=== PATIENT | male | born 1960 | race Caucasian/White ===

== ENCOUNTER 2020-06-15 19:59 | Inpatient (IN) | payer BC, SELFPAY ==
--- NOTE | ~2020-06-15 | XR_ITS ---
EXAMINATION: XR chest 1V portable EXAM DATE: 06/15/2020 21:23 INDICATION: cough, projectile vomiting. TECHNIQUE: Portable AP frontal chest x-ray was obtained. There is no prior study for comparison. FINDINGS: Moderate amount of patchy bilateral ill-defined acute airspace disease. Could be edema or p neumonia. Recommend considering/excluding COVID-19. No pneumothorax or pleural effusion. Mild cardiomegaly. There are no osseous abnormalities identified . IMPRESSION: Moderate amount of bilateral ill-defined acute airspace disease, clinical correlation. C onsider COVID pneumonia. Reviewed, dictated and finalized at location G. OMER EXPERIENCE LEADER IMPRESSION: Moderate amount of bilateral ill-defined acute airspace disease, c linical correlation. Consider COVID pneumonia.
--- NOTE | ~2020-06-15 | CT_ITS ---
EXAMINATION: CT brain wo con INDICATION: Headache COMPARISON: None TECHNIQUE: Standard unenhanced head CT. The dose-length product (DLP) was 605.33 mGy-cm. The mA was a djusted according to patient size. Iterative reconstruction technique was employed. FINDINGS: There is no intracranial hemorrhage, acute infarction, or abnormal mass lesion. The ventric les are normal. There is no abnormal mass effect or midline shift. The felipe-white matter differentiat ion is normal. The basal cisterns are patent. The orbits are normal. The paranasal sinuses, mastoids and calvarium are normal. IMPRESSION: 1. No acute intracranial abnormality. Reviewed, dictated and finalized at location A. APEUTIC ACTIVITIES SERVICES WORKER
[2020-06-15 20:09] VITALS: BP 154/82; PULSE 82; RESP 14; TEMP 36.6; O2SAT 97
--- NOTE | 2020-06-15 20:28 | ECG_ITS ---
Measurements Intervals [place] Rate: 79 P: 39 FL: 154 QRS: 16 QRSD: 104 T: 102 QT: 368 QTc: 422 Interpretive Statements SINUS RHYTHM EARLY PRECORDIAL R/S TRANSITION VOLTAGE CRITERIA FOR LVH MINIMAL Q WAVES- HIGH LATERAL LEADS BORDERLINE T WAVE ABNORMALITY- DIFFUSE LEADS BORDERLINE ECG Electronically Signed On 06-16-2020 8:06:05 CHEF INSTRUCTOR by Ayush Berman D.O.
--- NOTE | 2020-06-15 20:37 | PC.NURSE ---
called Valentine costello, added on 2036
[2020-06-15 20:38] LABS: Add Urine Microscopic? YES; Amorphous Sediment Urine Few; Appearance Urine Clear (Clear); Bacteria Urine Trace /hpf; Bilirubin Urine Negative (Negative); Blood Urine 1+ (Negative); Color Urine Yellow (Yellow); Glucose Urine UA 1+ mg/dL (Negative); Ketones Urine 2+ mg/dL (Negative); Leukocyte Esterase Ur Trace LEU/UL (Negative); Nitrate Urine Negative (Negative); Protein Urine 1+ mg/dL (Negative); Specific Grav Ur 1.014 (1.001-1.035); Squamous Epithelial Cell Urine Rare /hpf (Few); Urobilinogen Urine Negative mg/dL (<2.0); WBC Urine 0-3 /hpf
[2020-06-15 20:53] LABS: Alanine Aminotransferase 71 U/L (4-50); Albumin Level 4.3 g/dL (3.5-5.1); Alkaline Phosphatase 102 U/L (38-126); Anion Gap 13 mmol/L (8-16); Aspartate Amino Transferase 86 U/L (17-59); Bilirubin,Total 0.9 mg/dL (0.2-1.3); Blood Urea Nitrogen 5 mg/dL (9-20); Calcium 8.3 mg/dL (8.4-10.2); Carbon Dioxide 23 mmol/L (22-30); Chloride 75 mmol/L (98-107); Estimated CRCL calculation 131 ml/min; Estimated Glomerular Filt Rate > 60; Glucose 137 mg/dL (75-110); Lipase 103 U/L (23-300); Potassium 3.5 mmol/L (3.4-5.0); Sodium 111 mmol/L (137-145)
[2020-06-15 20:58] LABS: Troponin I < 0.012 ng/mL (0.000-0.034)
[2020-06-15] MEDS: ONDANSETRON INJ 4 MG/2 ML VIAL IV PUSH (20:59)
[2020-06-15] MEDS: SODIUM CHLORIDE 0.9% IV 1,000 ML 999 ML IV CONT (21:00)
[2020-06-15 21:37] VITALS: BP 140/89; PULSE 77; RESP 15; O2SAT 99
[2020-06-15 21:40] LABS: Basophils Percent Auto 0.2 % (0.2-1.2); Eosinophils Percent Auto 0.1 % (0-4.4); Hematocrit 36.8 % (42.0-52.0); Hemoglobin 14.2 g/dL (14.0-18.0); Immature Granulocyte Absolute 0.19 K/mm3 (0.00-0.031); Immature Granulocyte Percent A 2.2 % (0-0.5); Lymphocytes Absolute Auto 0.86 K/mm3 (0.9-3.2); Lymphocytes Percent Auto 9.7 % (18.3-44.2); Mean Corpuscular Hemoglobin 31.4 pg (26-34); Mean Corpuscular Volume 81.4 fl (80-100); Mean Platelet Volume 9.9 fl (7.4-10.4); Monocytes Absolute Auto 0.6 K/mm3 (0.1-0.6); Monocytes Percent Auto 6.2 % (2.6-8.5); Neutrophils Absolute Auto 7.2 K/mm3 (1.3-6.7); Neutrophils Percent Auto 81.6 % (45.5-73.1); Nucleated Red Blood Cells Perc 0.2 % (0.0-0.2); Platelet Count Result 270 k/mm3 (150-375); Red Blood Count 4.52 M/mm3 (4.6-6.20); Red Cell Distribution Width 11.8 % (11.5-14.5); White Blood Count 8.8 K/mm3 (4.5-10.0)
[2020-06-15 21:55] LABS: Mean Corpuscular HGB Conc 38.6 g/dl (32-36)
--- NOTE | 2020-06-15 22:08 | ED.GENADULT ---
HPI - General Adult General Chief complaint: Nausea/Vomiting/Diarrhea Stated complaint: vomiting Time Seen by Provider: 06/15/20 20:21 History of Present Illness HPI narrative: Patient is a 59-year-old gentleman who presents the emergency department with chief complaint of nausea vomiting and diarrhea. Patient reports that he was exposed to COVID-19 over the and has had a little bit of a cough some shortness of breath and has had nausea and vomiting. The patient reports that he also had some nasal drainage and was seen by his primary care physician and started on amoxicillin. Patient states that today he continued to have vomiting and also felt very weak and was a little confused per his . Patient currently is able to answer all questions and provide all history without confusion. Patient reports symptoms are not improved by anything nor they worsened by anything. Related Data Home Medications Medication Instructions Recorded Confirmed aspirin 81 mg tablet,delayed 81 mg PO DAILY 01/08/20 06/15/20 release omeprazole 20 mg capsule,delayed 20 mg PO DAILY 01/08/20 06/15/20 release Allergies Allergy/AdvReac Type Severity Reaction Status Date / Time erythromycin base Allergy Mild Unknown Verified 06/13/20 15:09 methylprednisolone Allergy Mild Unknown Verified 06/13/20 15:09 Review of Systems Review of Systems: Narrative: A 10 system review of systems was completed on the patient and is negative except for what is stated in the HPI. Nursing and ancillary documentation was reviewed. [facility] Family History Family History Father Patient's father is Social History Social History Smoking status: Never smoker Alcohol intake: never Comments Past medical history is significant for reflux Exam Narrative: Exam Narrative: GENERAL: Well-appearing, well-nourished, and in no acute distress. HEAD: Normocephalic, atraumatic. EYES: PERRLA and EOMI. ENT: Nares clear, no rhinorrhea or epistaxis. Mucous membranes moist. NECK: Supple. CHEST: Clear to auscultation. No respiratory distress. HEART: Regular rate and rhythm. No murmur heard. Normal peripheral pulses. ABDOMEN: Soft, nontender, nondistended, normal active bowel sounds. EXTREMITIES: Normal range of motion. No edema. SKIN: Warm, dry, no rash. NEURO: No focal deficits. Alert and oriented x3. PSYCH: Normal mood and affect. Course Vital Signs Vital signs: Vital Signs Temperature 36.6 C 06/15/20 20:09 Pulse Rate 82 06/15/20 20:09 Respiratory Rate 14 06/15/20 20:09 Blood Pressure 154/82 H 06/15/20 20:09 Pulse Oximetry 97 06/15/20 20:09 Temperature 36.6 C 06/15/20 20:09 Pulse Rate 77 06/15/20 21:37 Respiratory Rate 15 06/15/20 21:37 Blood Pressure 140/89 06/15/20 21:37 Pulse Oximetry 99 06/15/20 21:37 Medical Decision Making Vital Signs Vital Signs: Vital Signs Temperature 36.6 C 06/15/20 20:09 Pulse Rate 82 06/15/20 20:09 Respiratory Rate 14 06/15/20 20:09 Blood Pressure 154/82 H 06/15/20 20:09 Pulse Oximetry 97 06/15/20 20:09 Temperature 36.6 C 06/15/20 20:09 Pulse Rate 77 06/15/20 21:37 Respiratory Rate 15 06/15/20 21:37 Blood Pressure 140/89 06/15/20 21:37 Pulse Oximetry 99 06/15/20 21:37 Lab Data Result diagrams: 06/15/20 20:24 06/15/20 20:25 Labs: Lab Results 06/15/20 06/15/20 06/15/20 Range/Units 20:24 20:24 20:25 WBC 8.8 (4.5-10.0) K/mm3 RBC 4.52 L (4.6-6.20) M/mm3 Hgb 14.2 (14.0-18.0) g/dL Hct 36.8 L (42.0-52.0) % MCV 81.4 (80-100) fl MCH 31.4 (26-34) pg MCHC 38.6 H (32-36) g/dl RDW 11.8 (11.5-14.5) % Plt Count 270 (150-375) k/mm3 MPV 9.9 (7.4-10.4) fl Immature Gran % (Auto) 2.2 H (0-0.5) % Neut % (Auto)
[2020-06-15 23:15] VITALS: BP 150/80; PULSE 83; RESP 12; O2SAT 99
--- NOTE | 2020-06-15 23:46 | PM.IMHP ---
H&P: HPI History of Present Illness Date/Time: 06/15/20 23:46 Chief Complaint: Generalized weakness Narrative: This is a pleasant 59 year old male with known history of GERD and anxiety who has been at home self quarantining secondary to possible COVID-19 infection for the past two weeks. He reports that he was exposed to COVID-19 at [facility] and afterwards developed fevers, cough, shortness of breath and nausea. Associated symptoms included congestion and generalized weakness. 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 He has been taking little sips of water for the past few days as he has been very nauseated and has been vomiting frequently. Over the past two weeks the patient has also had diarrhea. He denies any headache, blurry vision, seizure like activity, passing out, or other focal neurological symptoms. His confirms that the patient has not had any acute confusion. Tonight in the ER the patient was found to have a serum sodium of 111 mOsm/dl incidently on routine labs. He has no previous history of hyponatremia and is not on any diuretic medications. Review of Systems Review of Systems: All systems reviewed & are unremarkable except as noted in HPI and below PMFSH Past Medical History Medical History Anxiety GERD (gastroesophageal reflux disease) Family History Family History Father Patient's father is Social History Social History Smoking status: Never smoker Alcohol intake: never Substance use: never Gender identity (if verbalized by the patient): Male Spiritual care concerns: No Meds Home Medications and Allergies Home Medications Medication Instructions Recorded Confirmed Type aspirin 81 mg tablet,delayed 81 mg PO DAILY 01/08/20 06/16/20 History release omeprazole 20 mg capsule,delayed 20 mg PO DAILY 01/08/20 06/16/20 History release amoxicillin 875 mg-potassium 1 tablet PO BID #20 tablet 06/13/20 06/16/20 Rx clavulanate 125 mg tablet lorazepam 1 mg tablet 1 mg PO DAILY PRN #30 tablet 06/13/20 06/16/20 Rx Allergies Allergy/AdvReac Type Severity Reaction Status Date / Time erythromycin base Allergy Mild Unknown Verified 06/13/20 15:09 methylprednisolone Allergy Mild Unknown Verified 06/13/20 15:09 Vital Signs Vital Signs - 24 hr 06/15/20 20:09 06/15/20 21:37 06/15/20 23:15 Temperature 36.6 C Pulse Rate 82 77 83 Respiratory Rate 14 15 12 Blood Pressure 154/82 H 140/89 150/80 H Pulse Oximetry 97 99 99 Exam Const: General: cooperative, alert, awake and ill appearing Nutritional Appearance: well nourished Orientation/consciousness: patient oriented x3 HENMT: Head: normal to inspection General nose exam: Normal external nose present Face and sinus: normal facial exam Mouth: Yes Normal oral and palatal mucosa present and Yes oropharynx normal Eyes: Pupils: Equal, round and reactive pupils present EOM: EOMs intact bilaterally Neck: Neck: supple and no JVD Thyroid: thyroid normal Lymphatic: lymphadenopathy not noted Resp: Effort & Inspection: normal respiratory effort Auscultation: diminished lung sounds Cardio: Rate: regular rate Rhythm: regular rhythm Heart sounds: no murmurs GI: Inspection: normal to inspection Auscultation: normal bowel sounds Skin: General skin exam: normal color and no rashes or lesions noted Neuro: General: patient oriented x3 Cranial nerves: Yes CN's II-XII intact bilaterally and Yes Equal, round and reactive pupils present Speech: normal speech Motor exam (neuro): 5/5 motor strength present throughout Sensory Exam: normal sensation Extrem: General: normal to inspection and no
[2020-06-16] VITALS (17 sets, daily range): BP systolic 135–146; BP diastolic 75–91; PULSE 77–90; RESP 16–20; TEMP 36.2–36.8; O2SAT 92–99; BMI 34.0
[2020-06-16 00:03] LABS: Anion Gap 8 mmol/L (8-16); Blood Urea Nitrogen 5 mg/dL (9-20); Calcium 7.6 mg/dL (8.4-10.2); Carbon Dioxide 24 mmol/L (22-30); Chloride 78 mmol/L (98-107); Estimated CRCL calculation 154 ml/min; Estimated Glomerular Filt Rate > 60; Glucose 121 mg/dL (75-110); Potassium 3.4 mmol/L (3.4-5.0); Sodium 110 mmol/L (137-145)
--- NOTE | 2020-06-16 01:23 | ADMGEN ---
This patient, Reza Albert, was admitted to IMU Room 207-01. Patient/family oriented to hospital policies and general routines including ID bracelet, bed and alarms, visiting hours, pain management, procedures, bathroom and other care routines, personal items, smoking policy, room service/diet, and visiting hours. Information on how to activate the Rapid Response Team has been discussed. Patient/Family are encouraged to report perceived risks to care and to ask questions if they do not understand what they are told or what they should do. bo gonsales approx [id number]
[2020-06-16] MEDS: SODIUM CHLORIDE 0.9% IV 1,000 ML 125 ML IV CONT (01:41)
[2020-06-16] MEDS: ALBUTEROL SULFATE (*SP) AEROSOL 1 PUFF 2 PUFF INHALATION ×4 (01:42→20:09)
[2020-06-16] MEDS: SODIUM CHLORIDE 3% 500 ML 90 ML IV CONT (02:33)
[2020-06-16 04:08] LABS: Creatinine Urine 29.9 mg/dL; Total Protein Urine Random 18 mg/dL
[2020-06-16 04:08] LABS: Sodium Urine Random 13 meq/L
[2020-06-16 05:00] LABS: Albumin Level 3.5 g/dL (3.5-5.1); Anion Gap 10 mmol/L (8-16); Blood Urea Nitrogen 4 mg/dL (9-20); Calcium 7.7 mg/dL (8.4-10.2); Carbon Dioxide 23 mmol/L (22-30); Chloride 79 mmol/L (98-107); Estimated CRCL calculation 155 ml/min; Estimated Glomerular Filt Rate > 60; Glucose 102 mg/dL (75-110); Phosphorus 2.5 mg/dL (2.5-4.5); Potassium 3.1 mmol/L (3.4-5.0); Sodium 112 mmol/L (137-145)
[2020-06-16 06:19] LABS: Thyroid Stimulating Hormone Reflex 0.413 uIU/mL (0.465-4.68)
[2020-06-16 06:21] LABS: Basophils Percent Auto 0.4 % (0.2-1.2); Eosinophils Percent Auto 0.1 % (0-4.4); Hematocrit 33.2 % (42.0-52.0); Hemoglobin 13.3 g/dL (14.0-18.0); Immature Granulocyte Absolute 0.17 K/mm3 (0.00-0.031); Immature Granulocyte Percent A 2.4 % (0-0.5); Lymphocytes Absolute Auto 1.18 K/mm3 (0.9-3.2); Mean Corpuscular Hemoglobin 32.3 pg (26-34); Mean Corpuscular Volume 80.6 fl (80-100); Mean Platelet Volume 9.6 fl (7.4-10.4); Monocytes Absolute Auto 0.6 K/mm3 (0.1-0.6); Monocytes Percent Auto 8.9 % (2.6-8.5); Neutrophils Absolute Auto 4.9 K/mm3 (1.3-6.7); Neutrophils Percent Auto 71.2 % (45.5-73.1); Platelet Count Result 293 k/mm3 (150-375); Red Blood Count 4.12 M/mm3 (4.6-6.20); Red Cell Distribution Width 11.7 % (11.5-14.5)
[2020-06-16 06:26] LABS: Mean Corpuscular HGB Conc 40.1 g/dl (32-36)
[2020-06-16 07:49] LABS: Free T4 Free Thyroxine Reflex 1.81 ng/dL (0.78-2.19)
[2020-06-16 08:09] LABS: Anion Gap 7 mmol/L (8-16); Blood Urea Nitrogen 4 mg/dL (9-20); Calcium 7.7 mg/dL (8.4-10.2); Carbon Dioxide 24 mmol/L (22-30); Chloride 86 mmol/L (98-107); Estimated CRCL calculation 132 ml/min; Estimated Glomerular Filt Rate > 60; Glucose 97 mg/dL (75-110); Potassium 3.3 mmol/L (3.4-5.0); Sodium 117 mmol/L (137-145)
[2020-06-16 09:04] LABS: Total Triiodothyronine (T3) 0.86 NG/ML (0.97-1.69)
[2020-06-16] MEDS: ENOXAPARIN 40 MG/0.4 ML SYRINGE SUB-Q (09:11)
[2020-06-16] MEDS: DEXTROSE 5% IN WATER 500 ML 250 ML IV CONT (09:11)
[2020-06-16] MEDS: PANTOPRAZOLE 40 MG TABLET PO (09:12)
[2020-06-16] MEDS: AMOXICILLIN/CLAVULANATE K 875-125 MG TAB 1 TABLET PO ×2 (09:12→20:09)
[2020-06-16] MEDS: ASPIRIN 81 MG ENTERIC TABLET PO (09:12)
[2020-06-16 12:56] LABS: Sodium 117 mmol/L (137-145)
[2020-06-16 12:58] LABS: Anion Gap 10 mmol/L (8-16); Blood Urea Nitrogen 4 mg/dL (9-20); Calcium 7.8 mg/dL (8.4-10.2); Carbon Dioxide 23 mmol/L (22-30); Chloride 84 mmol/L (98-107); Estimated CRCL calculation 155 ml/min; Estimated Glomerular Filt Rate > 60; Glucose 114 mg/dL (75-110); Potassium 3.3 mmol/L (3.4-5.0); Sodium 117 mmol/L (137-145)
--- NOTE | 2020-06-16 13:27 | PM.IMPN ---
Progress Note: A&P Assessment and Plan (1) Suspected 2019 novel coronavirus infection: Code(s): Z20.828 - Contact with and (suspected) exposure to other viral communicable diseases Status: Acute Assessment and Plan: Ruling out Awaiting PCR. (2) Generalized weakness: Code(s): R53.1 - Weakness Status: Acute Assessment and Plan: Likely secondary to hyponatremia and acute illness. (3) Acute hyponatremia: Code(s): E87.1 - Hypo-osmolality and hyponatremia Status: Acute Assessment and Plan: Management as pre Nephrology Trending up Continue to monitor (4) Dehydration: Code(s): E86.0 - Dehydration Status: Acute Assessment and Plan: Gentle hydration. (5) Nausea & vomiting: Qualifiers: Vomiting Intractability: non-intractable Vomiting type: unspecified Qualified Code(s): R11.2 - Nausea with vomiting, unspecified Code(s): R11.2 - Nausea with vomiting, unspecified Status: Acute Assessment and Plan: Supportive care. Likely secondary to acute illness. Subjective Date/time seen: 06/16/20 13:27 States that feels very tired and weak. Review of Systems Review of Systems: Narrative: Very tired and weak has had n/v/abdominal pain/diarrhea for the last week or so. Constitutional: Constitutional: Reports fatigue, Reports fever(s) and Reports lethargy Eyes: Comments: no vision changes. ENT: Comments: nasal congestion. Cardiovascular: Comments: no chest pain. Respiratory: Comments: no cough, no sputum production, no sob. Gastrointestinal: Comments: n/v/abdominal pain/diarrhea. Musculoskeletal: Musculoskeletal: Reports muscle weakness Integumentary/Breasts: Comments: no rashes. Neurologic: Comments: headache. Exam Narrative: Exam Narrative: Acutely ill looking lying in bed. Const: General: comfortable, no acute distress, well developed, alert, awake, Physically active and ill appearing Nutritional Appearance: average body habitus Orientation/consciousness: patient oriented x3 Limitations: no limitations HENMT: Head: normocephalic Ears: hearing grossly normal bilaterally General nose exam: Normal external nose present Face and sinus: normal facial exam Mouth: Yes Normal oral and palatal mucosa present Eyes: General: appearance normal, both eyes and all related structures Pupils: Equal, round and reactive pupils present EOM: EOMs intact bilaterally Neck: Neck: no lymphadenopathy, supple and no JVD Resp: Effort & Inspection: normal respiratory effort Auscultation: clear to auscultation bilaterally Cardio: Jugular venous distension: no JVD Rate: regular rate Heart sounds: S1 normal heart sound present GI: GI Palp: Yes Soft to palpation and Yes No hepatosplenomegaly present Skin: General skin exam: normal color Lesions: no lesions Rashes: no rashes Trauma: no lacerations or abrasions Wounds: no wounds Hair: normal Neuro: General: patient oriented x3 and CN's II-XI intact bilaterally Cranial nerves: Yes CN's II-XII intact bilaterally and Yes Equal, round and reactive pupils present Cognition (Neuro): normal cognition Speech: normal speech Motor exam (neuro): 5/5 motor strength present throughout Extrem: General: normal to inspection, full ROM and no pedal edema Objective Data Vital Signs Vital Signs: Vital Signs - 24 hr 06/15/20 20:09 06/15/20 21:37 06/15/20 23:15 Temperature 97.9 F Pulse Rate 82 77 83 Respiratory Rate 14 15 12 Blood Pressure 154/82 H 140/89 150/80 H Pulse Oximetry 97 99 99 06/16/20 00:15 06/16/20 01:24 06/16/20 02:00 Temperature 97.2 F L Pulse Rate 87 81 89 Respiratory Rate 20 18 Blood Pressure 135/91 H 146/79 H Pulse Oximetry 99 99 06/16/20 03:48 06/16/20 04:00 06/16/20 06:00 Temperature 97.2 F L Pulse Rate 80 81 88 Respiratory Rate 20 Blood Pressure 145/81 H Pulse Oximetry 95 06/16/20 07:04 06/16/20 08:00 06/16/20 08:58 Tempera
[2020-06-16 16:54] LABS: SARS-CoV-2 RNA PCR Positive
[2020-06-16 17:59] LABS: Anion Gap 10 mmol/L (8-16); Blood Urea Nitrogen 5 mg/dL (9-20); Calcium 8.3 mg/dL (8.4-10.2); Carbon Dioxide 23 mmol/L (22-30); Chloride 86 mmol/L (98-107); Estimated CRCL calculation 132 ml/min; Estimated Glomerular Filt Rate > 60; Glucose 110 mg/dL (75-110); Potassium 3.2 mmol/L (3.4-5.0); Sodium 119 mmol/L (137-145)
--- NOTE | 2020-06-16 18:23 | PM.CNNEP ---
Assessment and Plan Assessment and plan (1) Hyponatremia: Code(s): E87.1 - Hypo-osmolality and hyponatremia Status: Acute Assessment and Plan: improvement noted in sodium level s/p 3% saline however, concern is for overcorrection - will give DDAVP and D5W IVF to ensure this does not occur goal of therapy is a 6 - 9meQ/L change in 24 hours presumed etiology due to nausea/vomiting/diarrhea - urine electrolytes support volume depletion - not on any medications that would cause this - possibly related to COVID-19 exposure (?) TSH low but T4; cortisol okay as well follow-up on SPEP/UPEP, serum/urine osmolality, and kappa/lambda ratio continue fluid restriction for now follow serum sodium levels (2) Suspected 2019 novel coronavirus infection: Code(s): Z20.828 - Contact with and (suspected) exposure to other viral communicable diseases Status: Acute Assessment and Plan: follow-up on testing continue isolation for now (3) Nausea & vomiting: Qualifiers: Vomiting Intractability: non-intractable Vomiting type: unspecified Qualified Code(s): R11.2 - Nausea with vomiting, unspecified Code(s): R11.2 - Nausea with vomiting, unspecified Status: Acute Assessment and Plan: supportive therapy follow symptoms Extensive discussion with ER physician last night and patient today regarding plan of care and necessity of careful monitoring of sodium levels (> 20 minute conversation) Will continue to follow. History of Present Illness Reason for Consult Consult date: 06/16/20 Reason for consult: hyponatremia Chief Complaint Chief complaint: hyponatremia, viral pneumonia, nausea/vomiting History of Present Illness Narrative: The patient is a 59 year old male with past medical history as outlined below who presented to [facility] ER with complaints of ongoing nausea and vomiting. For the past 2 weeks the patient has been home self quarantining due to possible COVID-19 exposure. Apparently, around gi, he was exposed to someone who had COVID-19 and afterwards had symptoms will of fever, cough, shortness of breath, and nausea. Other associated symptoms included increased congestion and generalized weakness. He also reports that his appetite has been somewhat poor although his fevers did subside. His was more concerned by the fact that he had not been eating and drinking very well particularly since he is an avid soda drinker in general. He has been taking sips of water but more recently, he has had increased nausea and vomiting to the point where any significant oral intake in the last week or so has been very limited and this has been complicated by episodes of diarrhea as well. He gave no other symptoms of headache, syncope, or palpitations although his did mention that his memory is somewhat diminished since last weekend. Because of the persistence of the nausea and vomiting as well as the other symptoms as mentioned above he came to the ER for further evaluation. Workup and evaluation in the emergency room demonstrated the patient to be hemodynamically stable and routine blood tests were significant for significant/severe hyponatremia with a sodium level of 111mmol/L. he was tested for COVID-19 but given the severe hyponatremia, he was admitted the hospital for further evaluation and therapy. it should be noted they received about a L of normal saline in the ER without any significant improvement in his sodium level Dr. stanford actually, his sodium level actually somewhat worsened to 110mmol/L. Hence he was given 3% saline overnight with improvement in his sodium level. Renal consultation was requested due to his acute hyponatremia. From my discussion with the patient, he has never been told or had issues with low sodium level in the past. In spite of his significant hypernatremia, he
[2020-06-16] MEDS: DEXTROSE 5% 1,000 ML 1,000 ML 250 ML IV CONT (18:24)
[2020-06-16] MEDS: DESMOPRESSIN ACETATE 4 MCG/ML AMP 1 MCG SUB-Q (18:32)
[2020-06-16 22:01] LABS: Anion Gap 8 mmol/L (8-16); Blood Urea Nitrogen 4 mg/dL (9-20); Calcium 8.2 mg/dL (8.4-10.2); Carbon Dioxide 25 mmol/L (22-30); Chloride 84 mmol/L (98-107); Estimated CRCL calculation 132 ml/min; Estimated Glomerular Filt Rate > 60; Glucose 128 mg/dL (75-110); Potassium 3.2 mmol/L (3.4-5.0); Sodium 117 mmol/L (137-145)
[2020-06-17] VITALS (10 sets, daily range): BP systolic 124–138; BP diastolic 73–85; PULSE 71–86; RESP 12–20; TEMP 36.2–36.9; O2SAT 97–99
[2020-06-17 01:04] LABS: Sodium 117 mmol/L (137-145)
[2020-06-17] MEDS: ALBUTEROL SULFATE (*SP) AEROSOL 1 PUFF 2 PUFF INHALATION ×4 (01:13→20:05)
[2020-06-17 01:54] LABS: Anion Gap 8 mmol/L (8-16); Blood Urea Nitrogen 4 mg/dL (9-20); Calcium 7.7 mg/dL (8.4-10.2); Carbon Dioxide 24 mmol/L (22-30); Chloride 85 mmol/L (98-107); Estimated CRCL calculation 132 ml/min; Estimated Glomerular Filt Rate > 60; Glucose 103 mg/dL (75-110); Potassium 3.1 mmol/L (3.4-5.0)
[2020-06-17] MEDS: PANTOPRAZOLE 40 MG TABLET PO (08:15)
[2020-06-17] MEDS: ASPIRIN 81 MG ENTERIC TABLET PO (08:15)
[2020-06-17] MEDS: POTASSIUM CHLORIDE 20 MEQ TABLET 40 MEQ PO ×2 (08:15→14:11)
[2020-06-17] MEDS: AMOXICILLIN/CLAVULANATE K 875-125 MG TAB 1 TABLET PO ×2 (08:15→20:05)
[2020-06-17] MEDS: ENOXAPARIN 40 MG/0.4 ML SYRINGE SUB-Q (08:16)
--- NOTE | 2020-06-17 11:56 | PM.IMPN ---
Progress Note: A&P Assessment and Plan (1) Suspected 2019 novel coronavirus infection: Code(s): Z20.828 - Contact with and (suspected) exposure to other viral communicable diseases Status: Acute Assessment and Plan: Ruling out Awaiting PCR. (2) Generalized weakness: Code(s): R53.1 - Weakness Status: Acute Assessment and Plan: Likely secondary to hyponatremia and acute illness. (3) Acute hyponatremia: Code(s): E87.1 - Hypo-osmolality and hyponatremia Status: Acute Assessment and Plan: Management as pre Nephrology Trending up Continue to monitor (4) Dehydration: Code(s): E86.0 - Dehydration Status: Acute Assessment and Plan: Gentle hydration. (5) Nausea & vomiting: Qualifiers: Vomiting Intractability: non-intractable Vomiting type: unspecified Qualified Code(s): R11.2 - Nausea with vomiting, unspecified Code(s): R11.2 - Nausea with vomiting, unspecified Status: Acute Assessment and Plan: Supportive care. Likely secondary to acute illness. Additional Plan Will continue current treatment and monitor electrolytes. Subjective Date/time seen: 06/17/20 11:56 Interval history: Patient was seen during the morning rounds today. Mild sob, no chest pain,mood stable. Review of Systems Review of Systems: All systems reviewed & are unremarkable except as noted in HPI and below Constitutional: Constitutional: Reports fatigue, Reports fever(s) and Reports lethargy Musculoskeletal: Musculoskeletal: Reports muscle weakness Endocrine: Endocrine: Reports fatigue Exam Narrative: Exam Narrative: Acutely ill looking lying in bed. Const: General: cooperative, comfortable, no acute distress, well developed, alert, awake, Physically active and ill appearing Nutritional Appearance: average body habitus and well nourished Orientation/consciousness: patient oriented x3 Limitations: no limitations HENMT: Head: normal to inspection and normocephalic Ears: hearing grossly normal bilaterally General nose exam: Normal external nose present Face and sinus: normal facial exam Mouth: Yes Normal oral and palatal mucosa present and Yes oropharynx normal Eyes: General: appearance normal, both eyes and all related structures Pupils: Equal, round and reactive pupils present EOM: EOMs intact bilaterally Neck: Neck: no lymphadenopathy, supple and no JVD Thyroid: thyroid normal Lymphatic: lymphadenopathy not noted Resp: Effort & Inspection: normal respiratory effort Auscultation: clear to auscultation bilaterally and diminished lung sounds Cardio: Jugular venous distension: no JVD Rate: regular rate Rhythm: regular rhythm Heart sounds: S1 normal heart sound present and no murmurs GI: Inspection: normal to inspection Auscultation: normal bowel sounds Skin: General skin exam: normal color and no rashes or lesions noted Lesions: no lesions Rashes: no rashes Trauma: no lacerations or abrasions Wounds: no wounds Hair: normal Neuro: General: patient oriented x3 and CN's II-XI intact bilaterally Cranial nerves: Yes CN's II-XII intact bilaterally and Yes Equal, round and reactive pupils present Cognition (Neuro): normal cognition Speech: normal speech Motor exam (neuro): 5/5 motor strength present throughout Sensory Exam: normal sensation Extrem: General: normal to inspection, full ROM, no pedal edema and no edema Psych: Mental Status: mental status grossly normal Affect: normal affect Objective Data Vital Signs Vital Signs: Vital Signs - 24 hr 06/16/20 12:00 06/16/20 14:00 06/16/20 16:00 Temperature 36.4 C L 36.8 C Pulse Rate 85 81 83 Respiratory Rate 18 16 Blood Pressure 140/85 139/83 Pulse Oximetry 96 99 06/16/20 18:00 06/16/20 19:52 06/16/20 20:00 Temperature 36.5 C Pulse Rate 83 82 77 Respiratory Rate 20 Blood Pressure 143/80 H Pulse Oximetry 99 06/16/20 22:00 06/17/20 00:00
[2020-06-17 12:21] LABS: Alanine Aminotransferase 89 U/L (4-50); Albumin Level 3.6 g/dL (3.5-5.1); Alkaline Phosphatase 94 U/L (38-126); Anion Gap 9 mmol/L (8-16); Aspartate Amino Transferase 63 U/L (17-59); Bilirubin,Total 0.6 mg/dL (0.2-1.3); Blood Urea Nitrogen 4 mg/dL (9-20); Calcium 8.3 mg/dL (8.4-10.2); Carbon Dioxide 25 mmol/L (22-30); Chloride 88 mmol/L (98-107); Estimated CRCL calculation 132 ml/min; Estimated Glomerular Filt Rate > 60; Glucose 103 mg/dL (75-110); Potassium 3.4 mmol/L (3.4-5.0); Sodium 122 mmol/L (137-145)
--- NOTE | 2020-06-17 12:33 | PM.PNNEP ---
Progress Note: A&P Assessment and Plan (1) Hyponatremia: Code(s): E87.1 - Hypo-osmolality and hyponatremia Status: Acute Assessment and Plan: improvement noted in sodium level s/p 3% saline however, concern is for overcorrection yesterday - s/p DDAVP and D5W IVF which stability in sodium level goal of therapy is a 6 - 9meq/L change in 24 hours (which has been maintained) presumed etiology due to nausea/vomiting/diarrhea - urine electrolytes support volume depletion - not on any medications that would cause this - possibly related to COVID-19 exposure/sequelae (?) - CXR on admission noted TSH low but T4; cortisol okay as well follow-up on SPEP/UPEP, serum/urine osmolality, and kappa/lambda ratio continue fluid restriction for now follow serum sodium levels (2) Suspected 2019 novel coronavirus infection: Code(s): Z20.828 - Contact with and (suspected) exposure to other viral communicable diseases Status: Acute Assessment and Plan: testing is POSITIVE continue isolation for now no need for further intervention as on room air (3) Nausea & vomiting: Qualifiers: Vomiting Intractability: non-intractable Vomiting type: unspecified Qualified Code(s): R11.2 - Nausea with vomiting, unspecified Code(s): R11.2 - Nausea with vomiting, unspecified Status: Acute Assessment and Plan: supportive therapy follow symptoms Will continue to follow. Subjective Date/time seen: 06/17/20 12:33 No apparent distress voiced at the time of my visit; some mild shortness of breath noted; no acute events overnight or earlier this AM; no AM labs done. Exam Narrative: Exam Narrative: General: WD/WN male in NAD Heart: normal S1 and S2; no rub Lungs: clear anteriorly Abdomen: soft, nontender, nondistended, positive bowel sounds Extremities: no cyanosis or clubbing; no edema Skin: warm and dry Objective Data Vital Signs Vital Signs: Vital Signs Temp Pulse Resp BP Pulse Ox 06/17/20 12:00 36.2 C L 72 12 124/73 97 06/17/20 10:00 81 06/17/20 08:00 36.4 C L 82 16 138/85 99 06/17/20 06:00 79 06/17/20 04:00 36.2 C L 74 20 132/75 98 06/17/20 02:00 72 06/17/20 00:00 36.4 C L 71 20 134/81 98 06/16/20 22:00 84 06/16/20 20:00 77 06/16/20 19:52 36.5 C 82 20 143/80 H 99 06/16/20 18:00 83 06/16/20 16:00 36.8 C 83 16 139/83 99 06/16/20 14:00 81 Intake/Output Intake/Output: Intake & Output 06/14/20 06/15/20 06/16/20 06/17/20 23:59 23:59 23:59 23:59 Intake Total 1000 180 240 Output Total 2800 1800 Balance 1000 -2620 -1560 Meds/Results Medications: Active Medications Generic Name Dose Route Start Last Admin Trade Name Freq PRN Reason Stop Dose Admin Acetaminophen 650 mg 06/16/20 00:20 Acetaminophen 325 Mg Tablet PO Q4H PRN Mild Pain (1-3) or Fever Albuterol 2 puff 06/15/20 23:45 Albuterol Sulfate (*Sp) Aerosol 1 Puff INHALATION Q6HRT PRN Shortness Of Breath Albuterol 2 puff 06/16/20 02:00 06/17/20 08:16 Albuterol Sulfate (*Sp) Aerosol 1 Puff INHALATION 2 puff Q6HRT JEAN Administration Amoxicillin/Clavulanate Potassium 1 tablet 06/16/20 09:00 06/17/20 08:15 Amoxicillin/Clavulanate K 875-125 Mg Tab PO 06/23/20 09:01 1 tablet Q12HR JEAN Administration Aspirin 81 mg 06/16/20 09:00 06/17/20 08:15 Aspirin 81 Mg Enteric Tablet PO 81 mg DAILY JEAN Administration Enoxaparin Sodium 40 mg 06/16/20 09:00 06/17/20 08:16 Enoxaparin 40 Mg/0.4 Ml Syringe SUB-Q 40 mg DAILY JEAN Administration Guaifenesin/Dextromethorphan 5 ml 06/15/20 23:45 Guaifenesin/Dextromethorphan 10 Ml Udc PO Q4H PRN Cough Lorazepam 1 mg 06/16/20 04:43 Lorazepam (*Crx) 1 Mg Tablet PO DAILY PRN anxiety Magnesium Oxide 400 mg 06/18/20 09:00
--- NOTE | 2020-06-17 14:13 | PC.NURSE ---
This patient, Reza Albert, was transferred to [facility] on 06/17/20 at 1413. Personal belongings sent with patient. Report given to SUE Persaud. Appropriate documentation sent with patient.
--- NOTE | 2020-06-17 15:10 | PC.NURSE ---
This patient, Reza Albert, was received from [ [id number] ] on 06/17/20 at 1511. Patient/family oriented to unit policies and routines
[2020-06-17 17:04] LABS: Anion Gap 8 mmol/L (8-16); Blood Urea Nitrogen 4 mg/dL (9-20); Calcium 8.7 mg/dL (8.4-10.2); Carbon Dioxide 28 mmol/L (22-30); Chloride 89 mmol/L (98-107); Estimated CRCL calculation 115 ml/min; Estimated Glomerular Filt Rate > 60; Glucose 103 mg/dL (75-110); Potassium 3.7 mmol/L (3.4-5.0); Sodium 125 mmol/L (137-145)
[2020-06-17 22:07] LABS: Sodium 124 mmol/L (137-145)
[2020-06-18] VITALS (7 sets, daily range): BP systolic 108–122; BP diastolic 66–81; PULSE 76–96; RESP 16–20; TEMP 36.5–36.9; O2SAT 92–98
[2020-06-18] MEDS: ALBUTEROL SULFATE (*SP) AEROSOL 1 PUFF 2 PUFF INHALATION ×4 (02:03→20:34)
[2020-06-18 07:39] LABS: Anion Gap 6 mmol/L (8-16); Blood Urea Nitrogen 6 mg/dL (9-20); Calcium 8.6 mg/dL (8.4-10.2); Carbon Dioxide 26 mmol/L (22-30); Chloride 95 mmol/L (98-107); Estimated CRCL calculation 112 ml/min; Estimated Glomerular Filt Rate > 60; Glucose 89 mg/dL (75-110); Potassium 3.7 mmol/L (3.4-5.0); Sodium 127 mmol/L (137-145)
[2020-06-18] MEDS: ENOXAPARIN 40 MG/0.4 ML SYRINGE SUB-Q (09:35)
[2020-06-18] MEDS: AMOXICILLIN/CLAVULANATE K 875-125 MG TAB 1 TABLET PO ×2 (09:35→20:33)
[2020-06-18] MEDS: ASPIRIN 81 MG ENTERIC TABLET PO (09:35)
[2020-06-18] MEDS: PANTOPRAZOLE 40 MG TABLET PO (09:35)
[2020-06-18] MEDS: MAGNESIUM OXIDE 400 MG TABLET PO (09:35)
--- NOTE | 2020-06-18 10:50 | PM.IMPN ---
Progress Note: A&P Assessment and Plan (1) Generalized weakness: Code(s): R53.1 - Weakness Status: Acute Assessment and Plan: Likely secondary to viral illness and dehydration. Continue IV hydration and supportive care. PT evaluation and treatment. (2) Suspected 2019 novel coronavirus infection: Code(s): Z20.828 - Contact with and (suspected) exposure to other viral communicable diseases Status: Acute Assessment and Plan: The patient has had viral URI symptoms for the past 2 weeks. He was COVID-19 swabbed in the ER tonight. Continue droplet isolation. Continue supportive care. COVID-19 results pending. (3) Acute hyponatremia: Code(s): E87.1 - Hypo-osmolality and hyponatremia Status: Acute Assessment and Plan: The patient has severe hyponatremia with a serum sodium of 111 mOsm/dl. He was treated with 1 liter NS IV bolus in the ER. Nephrology has been consulted by ER provider. We will recheck BMP. Consider hypertonic saline. Seizure precautions. Check urine sodium and urine osm. Complete oral fluid restriction. (4) Nausea & vomiting: Qualifiers: Vomiting Intractability: non-intractable Vomiting type: unspecified Qualified Code(s): R11.2 - Nausea with vomiting, unspecified Code(s): R11.2 - Nausea with vomiting, unspecified Status: Acute Assessment and Plan: Secondary to viral syndrome. Antiemetics as needed. (5) Dehydration: Code(s): E86.0 - Dehydration Status: Acute Assessment and Plan: Continue IV hydration. Monitor urine output and vital signs. (6) Anxiety: Code(s): F41.9 - Anxiety disorder, unspecified Status: Chronic Assessment and Plan: Continue lorazepam for anxiety. (7) GERD (gastroesophageal reflux disease): Qualifiers: Esophagitis presence: esophagitis presence not specified Qualified Code(s): K21.9 - Gastro-esophageal reflux disease without esophagitis Code(s): K21.9 - Gastro-esophageal reflux disease without esophagitis Status: Chronic Assessment and Plan: Continue PPI therapy. Additional Plan Will continue current treatment and monitor electrolytes. Sodium is 127 today. Will repeat Bmp in am. If patient stays okay will discharge patient in am. Subjective Date/time seen: 06/18/20 10:50 Interval history: Patient was seen during the morning rounds today. Mild sob, no chest pain,mood stable. No new complaints Review of Systems Review of Systems: All systems reviewed & are unremarkable except as noted in HPI and below Constitutional: Constitutional: Reports fatigue, Reports fever(s) and Reports lethargy Musculoskeletal: Musculoskeletal: Reports muscle weakness Endocrine: Endocrine: Reports fatigue Exam Narrative: Exam Narrative: Acutely ill looking lying in bed. Const: General: cooperative, comfortable, no acute distress, well developed, alert, awake, Physically active and ill appearing Nutritional Appearance: average body habitus and well nourished Orientation/consciousness: patient oriented x3 Limitations: no limitations HENMT: Head: normal to inspection and normocephalic Ears: hearing grossly normal bilaterally General nose exam: Normal external nose present Face and sinus: normal facial exam Mouth: Yes Normal oral and palatal mucosa present and Yes oropharynx normal Eyes: General: appearance normal, both eyes and all related structures Pupils: Equal, round and reactive pupils present EOM: EOMs intact bilaterally Neck: Neck: no lymphadenopathy, supple and no JVD Thyroid: thyroid normal Lymphatic: lymphadenopathy not noted Resp: Effort & Inspection: normal respiratory effort Auscultation: clear to auscultation bilaterally and diminished lung sounds Cardio: Jugular venous distension: no JVD Rate: regular rate Rhythm: regular rhythm Heart sounds: S1 normal heart sound present and no murmurs GI: Inspection: normal to ins
[2020-06-18 12:02] LABS: Kappa\\Lambda Light Chains 1.07 (0.26-1.65)
--- NOTE | 2020-06-18 14:32 | PM.PNNEP ---
Progress Note: A&P Assessment and Plan (1) Hyponatremia: Code(s): E87.1 - Hypo-osmolality and hyponatremia Status: Acute Assessment and Plan: Patient has hyponatremia. presumed etiology due to nausea/vomiting/diarrhea - urine electrolytes support volume depletion - not on any medications that would cause this - possibly related to COVID-19 exposure/sequelae (?) - CXR on admission noted TSH low but T4; cortisol okay as well follow-up on SPEP/UPEP, serum/urine osmolality, and kappa/lambda ratio Sodium went from 111-117 the 1st day. Than 117-122 the 2nd day. Than 122-127 the 3rd day. Will cancel the D5W and remove fluid restriction. Check another sodium level later today. (2) Suspected 2019 novel coronavirus infection: Code(s): Z20.828 - Contact with and (suspected) exposure to other viral communicable diseases Status: Acute Assessment and Plan: testing is POSITIVE continue isolation for now no need for further intervention as on room air (3) Nausea & vomiting: Qualifiers: Vomiting Intractability: non-intractable Vomiting type: unspecified Qualified Code(s): R11.2 - Nausea with vomiting, unspecified Code(s): R11.2 - Nausea with vomiting, unspecified Status: Acute Assessment and Plan: supportive therapy No more nausea vomiting. Eating better now. Will continue to follow. Subjective Date/time seen: 06/18/20 14:32 Interval history: Patient is alert. He feels okay. Review of Systems Cardiovascular: Cardiovascular: Reports no additional cardiovascular complaints Respiratory: Respiratory: Reports no additional respiratory complaints Gastrointestinal: Gastrointestinal: Reports no additional gastrointestinal complaints Genitourinary: Genitourinary: Reports no additional male genitourinary complaints Exam Narrative: Exam Narrative: General: WD/WN male in NAD Heart: normal S1 and S2; no rub Lungs: clear anteriorly Abdomen: soft, nontender, nondistended, positive bowel sounds Extremities: no cyanosis or clubbing; no edema Skin: No rash Objective Data Vital Signs Vital Signs: Vital Signs - 24 hr 06/17/20 16:00 06/17/20 20:00 06/18/20 00:00 Temperature 36.9 C 36.5 C 36.5 C Pulse Rate 73 86 78 Respiratory Rate Blood Pressure 127/73 125/81 118/81 Pulse Oximetry 99 97 98 06/18/20 06:00 06/18/20 08:00 06/18/20 12:00 Temperature 36.5 C 36.9 C 36.6 C Pulse Rate 79 76 96 Respiratory Rate 20 16 18 Blood Pressure 108/68 120/72 113/66 Pulse Oximetry 95 92 97 Intake/Output Intake/Output: Intake & Output 06/15/20 06/16/20 06/17/20 06/18/20 23:59 23:59 23:59 23:59 Intake Total 1000 180 980 760 Output Total 2800 2500 500 Balance 1000 -2620 -1520 260 Meds/Results Medications: Active Medications Generic Name Dose Route Start Last Admin Trade Name Freq PRN Reason Stop Dose Admin Acetaminophen 650 mg 06/16/20 00:20 Acetaminophen 325 Mg Tablet PO Q4H PRN Mild Pain (1-3) or Fever Al Hydrox/Mg Hydrox/Simethicone 30 ml 06/17/20 23:17 Mag Hydrox/Al Hydrox/Simeth 30 Ml Udc PO Q4H PRN Indigestion Albuterol 2 puff 06/15/20 23:45 Albuterol Sulfate (*Sp) Aerosol 1 Puff INHALATION Q6HRT PRN Shortness Of Breath Albuterol 2 puff 06/16/20 02:00 06/18/20 09:36 Albuterol Sulfate (*Sp) Aerosol 1 Puff INHALATION 2 puff Q6HRT JEAN Administration Amoxicillin/Clavulanate Potassium 1 tablet 06/16/20 09:00 06/18/20 09:35 Amoxicillin/Clavulanate K 875-125 Mg Tab PO 06/23/20 09:01 1 tablet Q12HR JEAN Administration Aspirin 81 mg 06/16/20 09:00 06/18/20 09:35 Aspirin 81 Mg Enteric Tablet PO 81 mg DAILY JEAN Administration Enoxaparin Sodium 40 mg 06/16/20 09:00 06/18/20 09:35 Enoxaparin 40 Mg/0.4 Ml Syringe SUB-Q 40 mg DAILY JEAN Administration Guaifenesin/Dextromethorphan 5 ml 12
[2020-06-18 15:25] LABS: Sodium 130 mmol/L (137-145)
[2020-06-18 18:38] LABS: Sodium 129 mmol/L (137-145)
[2020-06-18] MEDS: guaiFENesin/DEXTROMETHORPHAN 10 ML UDC 5 ML PO (20:34)
[2020-06-19] VITALS: BP 120/74; PULSE 81; RESP 16; TEMP 36.8; O2SAT 98
[2020-06-19] MEDS: ALBUTEROL SULFATE (*SP) AEROSOL 1 PUFF 2 PUFF INHALATION ×2 (02:35→09:31)
[2020-06-19 04:00] VITALS: BP 121/69; PULSE 89; RESP 16; TEMP 36.6; O2SAT 93
[2020-06-19 04:25] LABS: Osmolality, Urine 149 mOsm/kg (50-1200)
[2020-06-19 08:00] VITALS: BP 107/74; PULSE 76; RESP 20; TEMP 36.5; O2SAT 97
[2020-06-19 08:06] LABS: Anion Gap 5 mmol/L (8-16); Blood Urea Nitrogen 8 mg/dL (9-20); Calcium 8.6 mg/dL (8.4-10.2); Carbon Dioxide 31 mmol/L (22-30); Chloride 94 mmol/L (98-107); Estimated CRCL calculation 112 ml/min; Estimated Glomerular Filt Rate > 60; Glucose 96 mg/dL (75-110); Potassium 3.7 mmol/L (3.4-5.0); Sodium 130 mmol/L (137-145)
[2020-06-19] MEDS: ASPIRIN 81 MG ENTERIC TABLET PO (09:28)
[2020-06-19] MEDS: MAGNESIUM OXIDE 400 MG TABLET PO (09:28)
[2020-06-19] MEDS: AMOXICILLIN/CLAVULANATE K 875-125 MG TAB 1 TABLET PO (09:28)
[2020-06-19] MEDS: ENOXAPARIN 40 MG/0.4 ML SYRINGE SUB-Q (09:28)
[2020-06-19] MEDS: PANTOPRAZOLE 40 MG TABLET PO (09:29)
--- NOTE | 2020-06-19 09:48 | PM.DS ---
DS: Admitting Diagnosis Admitting Diagnosis Admitting Diagnosis: 1. COVID infection 2. Severe hyponatremia 2. Dehydration 4. Anxiety 5. Gastroesophageal reflux disease DS: Discharge Diagnosis Discharge Diagnosis (1) Generalized weakness: Code(s): R53.1 - Weakness Status: Acute Assessment and Plan: Likely secondary to viral illness and dehydration. Continue IV hydration and supportive care. PT evaluation and treatment. (2) Suspected 2019 novel coronavirus infection: Code(s): Z20.828 - Contact with and (suspected) exposure to other viral communicable diseases Status: Acute Assessment and Plan: The patient has had viral URI symptoms for the past 2 weeks. He was COVID-19 swabbed in the ER tonight. Continue droplet isolation. Continue supportive care. COVID-19 results pending. (3) Acute hyponatremia: Code(s): E87.1 - Hypo-osmolality and hyponatremia Status: Acute Assessment and Plan: The patient has severe hyponatremia with a serum sodium of 111 mOsm/dl. He was treated with 1 liter NS IV bolus in the ER. Nephrology has been consulted by ER provider. We will recheck BMP. Consider hypertonic saline. Seizure precautions. Check urine sodium and urine osm. Complete oral fluid restriction. (4) Nausea & vomiting: Qualifiers: Vomiting Intractability: non-intractable Vomiting type: unspecified Qualified Code(s): R11.2 - Nausea with vomiting, unspecified Code(s): R11.2 - Nausea with vomiting, unspecified Status: Acute Assessment and Plan: Secondary to viral syndrome. Antiemetics as needed. (5) Dehydration: Code(s): E86.0 - Dehydration Status: Acute Assessment and Plan: Continue IV hydration. Monitor urine output and vital signs. (6) Anxiety: Code(s): F41.9 - Anxiety disorder, unspecified Status: Chronic Assessment and Plan: Continue lorazepam for anxiety. (7) GERD (gastroesophageal reflux disease): Qualifiers: Esophagitis presence: esophagitis presence not specified Qualified Code(s): K21.9 - Gastro-esophageal reflux disease without esophagitis Code(s): K21.9 - Gastro-esophageal reflux disease without esophagitis Status: Chronic Assessment and Plan: Continue PPI therapy. DS: Summary Hospital Course Reason for hospitalization: 1. COVID infection 2. Severe dehydration 3. Severe hyponatremia 4. Anxiety 6. Gastroesophageal reflux disease Hospital Course: Chief Complaint: Generalized weakness Narrative: This is a pleasant 59 year old male with known history of GERD and anxiety who has been at home self quarantining secondary to possible COVID-19 infection for the past two weeks. He reports that he was exposed to COVID-19 at [facility] and afterwards developed fevers, cough, shortness of breath and nausea. Associated symptoms included congestion and generalized weakness. 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 He has been taking little sips of water for the past few days as he has been very nauseated and has been vomiting frequently. Over the past two weeks the patient has also had diarrhea. He denies any headache, blurry vision, seizure like activity, passing out, or other focal neurological symptoms. His confirms that the patient has not had any acute confusion. Tonight in the ER the patient was found to have a serum sodium of 111 mOsm/dl incidently on routine labs. He has no previous history of hyponatremia and is not on any diuretic medications. Patient's sodium was monitored very closely and oxygen was monitored very closely. Today patient's sodium is 130 patient oxygenation is normal. Patient discharged home regular diet. Activity as tolerated. Follow-up with primary care physician next week Time spent discus
[2020-06-19 12:00] VITALS: BP 119/86; PULSE 104; RESP 20; TEMP 36.4; O2SAT 98
--- NOTE | 2020-06-19 12:27 | PC.NURSE ---
Reviewed discharge instructions and follow up with patient. IV removed with catheter tip intact. Hemostatis aquired. Patient left floor ambulating with staff member to POV. Opportunity for questions asked and answered. Patient verbalized understanding.
[2020-06-19 17:06] LABS: Chloride Rand Ur 20 mmol/L (32-290); Chloride/Creatinine Rand Ur 67 (23-275); Creatinine Random Urine 30 mg/dL (20-320)
[2020-06-19 23:04] LABS: Albumin 3.1 g/dL (3.8-4.8); Alpha 1 Globulin 0.4 g/dL (0.2-0.3); Alpha 2 Globulin 0.8 g/dL (0.5-0.9); Beta 1 Globulin 0.3 g/dL (0.4-0.6); Gamma Globulin 0.7 g/dL (0.8-1.7); Protein, Total 5.6 g/dL (6.1-8.1)
[2020-06-20 05:26] LABS: Creatinine, Random Urine 29 mg/dL (20-320); Total Protein/Creatinine Ratio 207 mg/g creat (22-128)
--- NOTE | 2020-07-16 11:35 | PM.PNPUL ---
Subjective Date/time seen: 06/17/2020 I did not see this patient in consultation; was on vacation. Objective Data Meds/Results Radiology Results: ITS Impressions Chest X-Ray 06/15/20 21:30 IMPRESSION: Moderate amount of bilateral ill-defined acute airspace disease, clinical correlation. Consider COVID pneumonia. Head CT 06/16/20 08:00 IMPRESSION: 1. No acute intracranial abnormality.
== END 2020-06-19 12:23 | disposition home or self-care (01) | DRG 178 ==
LOC: ANHED 22:09 → ANHIMU 06-17 12:03 → ANH3MEDSUR 06-19 09:48 → ANHIMU 06-24 06:14
PROVIDERS: Internal Medicine Nephrology; Admitting Provider Family Medicine; Emergency Provider Emergency Medicine; PCP Internal Medicine; Visit Provider Internal Medicine
DX: U07.1 COVID-19 (principal); E87.1 Hypo-osmolality and hyponatremia; E86.0 Dehydration; K21.9 Gastro-esophageal reflux disease without esophagitis; F41.9 Anxiety disorder, unspecified
CPT/HCPCS: 36415; 70450; 71045; 80048; 80053; 80069; 81001; 82436; 82533; 82570; 83690; 83735; 83883; 83930; 83935; 84155; 84156; 84165; 84166; 84295; 84300; 84439; 84443; 84480; 84484; 85025; 85999; 87635; 93005; 94640; 96361; 96374; 97116; 97161; 97165; 99285; A9270; C9803; J1650; J2405; J2597; J7030; J7060; J7070; J7131; U0003

== ENCOUNTER 2020-06-23 11:11 | Outpatient (CLI) | payer BC, SELFPAY ==
[2020-06-23 12:12] LABS: Sodium 137 mmol/L (137-145)
== END 2020-06-23 11:12 | disposition home or self-care (01) ==
LOC: ANHLAB 11:13
PROVIDERS: PCP Internal Medicine; Visit Provider Internal Medicine Nephrology
DX: E87.1 Hypo-osmolality and hyponatremia (principal)
CPT/HCPCS: 36415; 84295

== ENCOUNTER 2020-08-13 09:31 | Emergency (ER) | payer BC, SELFPAY ==
[2020-08-13] VITALS (16 sets, daily range): BP systolic 114–137; BP diastolic 86–95; PULSE 81–107; RESP 13–32; TEMP 36.7; O2SAT 99–100
--- NOTE | ~2020-08-13 | XR_ITS ---
EXAMINATION: XR chest 2V DATE: 08/13/2020 10:09 INDICATION: Chest pain TECHNIQUE: PA and lateral views of the chest are obtained. COMPARISON: 06/15/2020 FINDINGS: A mild diffuse interstitial pattern is present. There are multiple focal airspace opacities in the lung bases. No pleural effusion or pneumothorax is identified. Cardiomegaly is noted. There i s mild thoracic spondylosis. IMPRESSION: 1. Cardiomegaly with mild pulmonary edema. 2. Minimal bibasilar airspace opacity, consistent with atelectasis versus pneumonia. Reviewed, dictated and finalized at location A. DRIVER IMPRESSION: 1. Cardiomegaly with mild pulmonary edema. 2. Minimal bibasilar airspace opacity, consistent with atelectasis versus pneum onia.
--- NOTE | 2020-08-13 09:37 | ECG_ITS ---
Measurements Intervals [place] Rate: 89 P: 27 NE: 141 QRS: 8 QRSD: 95 T: 37 QT: 361 QTc: 441 Interpretive Statements SINUS RHYTHM EARLY PRECORDIAL R/S TRANSITION LOW QRS VOLTAGE IN PRECORDIAL LEADS NONSPECIFIC ST & T-WAVE ABNORMALITY- ANTEROLAT/HIGH LAT LEADS BORDERLINE ECG Electronically Signed On 08-13-2020 13:07:50 [employer] by Ayush Berman D.O.
[2020-08-13] MEDS: ASPIRIN 81 MG CHEWABLE TABLET 324 MG PO (09:48)
[2020-08-13 10:00] LABS: Basophils Absolute Auto 0.1 K/mm3 (0.0-0.1); Basophils Percent Auto 0.7 % (0.2-1.2); Eosinophils Absolute Auto 0.2 K/mm3 (0-0.3); Eosinophils Percent Auto 2.3 % (0-4.4); Hematocrit 40.5 % (42.0-52.0); Immature Granulocyte Absolute 0.03 K/mm3 (0.00-0.031); Immature Granulocyte Percent A 0.4 % (0-0.5); Lymphocytes Absolute Auto 2.29 K/mm3 (0.9-3.2); Lymphocytes Percent Auto 27.2 % (18.3-44.2); Mean Corpuscular HGB Conc 34.6 g/dl (32-36); Mean Corpuscular Volume 92.7 fl (80-100); Monocytes Absolute Auto 0.5 K/mm3 (0.1-0.6); Monocytes Percent Auto 6.3 % (2.6-8.5); Neutrophils Absolute Auto 5.3 K/mm3 (1.3-6.7); Neutrophils Percent Auto 63.1 % (45.5-73.1); Platelet Count Result 256 k/mm3 (150-375); Red Blood Count 4.37 M/mm3 (4.6-6.20); Red Cell Distribution Width 13.5 % (11.5-14.5); White Blood Count 8.4 K/mm3 (4.5-10.0)
[2020-08-13 10:09] LABS: INR 0.9; Prothrombin Time 12.7 Seconds (11.1-14.7)
[2020-08-13 10:10] LABS: Partial Thromboplastin Time 29.2 SECONDS (22.3-36.8)
[2020-08-13 10:27] LABS: Anion Gap 5 mmol/L (8-16); Blood Urea Nitrogen 14 mg/dL (9-20); Calcium 8.8 mg/dL (8.4-10.2); Carbon Dioxide 30 mmol/L (22-30); Chloride 104 mmol/L (98-107); Estimated CRCL calculation 89 ml/min; Estimated Glomerular Filt Rate > 60; Glucose 95 mg/dL (75-110); Sodium 139 mmol/L (137-145)
[2020-08-13 10:37] LABS: Troponin I < 0.012 ng/mL (0.000-0.034)
--- NOTE | 2020-08-13 11:18 | ED.GENADULT ---
HPI - General Adult General Chief complaint: Chest Pain Stated complaint: chest pain Time Seen by Provider: 08/13/20 09:37 History of Present Illness HPI narrative: Patient is a 60-year-old male who presents ER with chest pain. Reports he has intermittent chest pain related to his acid reflux. Reports today he had sharp 9/10 pain in the center of his chest that was nonradiating. Goes from his epigastrium up into the center of his chest. He took some Rolaids which did not seem to help but his pain is much better at this time. No sweats/nausea/vomiting. No dyspnea. No previous history of cardiac disease. Related Data Home Medications Medication Instructions Recorded Confirmed aspirin 81 mg tablet,delayed 81 mg PO DAILY 01/08/20 06/16/20 release Allergies Allergy/AdvReac Type Severity Reaction Status Date / Time erythromycin base Allergy Mild Unknown Verified 08/13/20 09:45 methylprednisolone Allergy Mild Unknown Verified 08/13/20 09:45 Review of Systems Review of Systems: All systems reviewed & are unremarkable except as noted in HPI and below Constitutional: Constitutional: Denies chills, Denies fever(s) and Denies weakness ENT: Denies nasal congestion and Denies sore throat Cardiovascular: Cardiovascular: Reports chest pain, Denies rapid heart rate and Denies radiating jaw, neck or arm pain Respiratory: Respiratory: Denies cough, Denies dyspnea and Denies wheezing Gastrointestinal: Gastrointestinal: Denies abdominal pain, Reports bloating, Reports heartburn, Denies diarrhea, Denies nausea and Denies vomiting Musculoskeletal: Musculoskeletal: Denies back pain, Denies joint swelling and Denies muscle cramps PMFSH Past Medical History Medical History (Updated 08/13/20 @ 14:07 by Brad Ball MD) Anxiety DVT (deep venous thrombosis) GERD (gastroesophageal reflux disease) Family History Family History Father Patient's father is Social History Social History Smoking status: Never smoker Alcohol intake: never Substance use: never Gender identity (if verbalized by the patient): Male Spiritual care concerns: No Exam Narrative: Exam Narrative: GENERAL: Well-appearing, well-nourished, and in no acute distress. HEAD: Normocephalic, atraumatic. ENT: Mucous membranes moist. CHEST: Clear to auscultation. No respiratory distress. HEART: Regular rate and rhythm. Normal peripheral pulses. ABDOMEN: Soft, nontender, nondistended. EXTREMITIES: Normal range of motion. No edema. SKIN: Warm, dry, no rash. NEURO: Alert and oriented x3. PSYCH: Normal mood and affect. Course Course Emergency Course: Troponins negative x2. Discussed case with Dr. Martin. We will have him follow-up outpatient for stress and echo. Discussed with patient who is verbalized understanding of treatment plan and lab results. Vital Signs Vital signs: Vital Signs Temperature 98.0 F 08/13/20 09:41 Pulse Rate 89 08/13/20 09:41 Respiratory Rate 14 08/13/20 09:41 Blood Pressure 137/87 08/13/20 09:41 Pulse Oximetry 99 08/13/20 09:41 Temperature 98.0 F 08/13/20 09:41 Pulse Rate 93 08/13/20 12:59 Respiratory Rate 25 H 08/13/20 12:59 Blood Pressure 121/87 08/13/20 12:59 Pulse Oximetry 100 08/13/20 12:59 Medical Decision Making Vital Signs Vital Signs: Vital Signs Temperature 98.0 F 08/13/20 09:41 Pulse Rate 89 08/13/20 09:41 Respiratory Rate 14 08/13/20 09:41 Blood Pressure 137/87 08/13/20 09:41 Pulse Oximetry 99 08/13/20 09:41 Temperature 98.0 F 08/13/20 09:41 Pulse Rate 93 08/13/20 12:59 Respiratory Rate 25 H 08/13/20 12:59 Blood Pressure 121/87 08/13/20 12:59 Pulse Oximetry 100 08/13/20 12:59 Lab Data Result diagrams: 08/13/20 09:53 08/13/20 09:53 Labs: Lab Results 08/13/20
[2020-08-13 11:42] LABS: NT Pro B Type Natriuretic Pept 25 PG/ML (5-100)
[2020-08-13] MEDS: BELLADONNA ALK/PHENOB ELIX 10 ML, MAG HYDROX/ALUMINUM HYD/SIMETH 30 ML, LIDOCAINE HCL 2... PO (12:56)
[2020-08-13 13:21] LABS: Troponin I < 0.012 ng/mL (0.000-0.034)
== END 2020-08-13 14:26 | disposition home or self-care (01) ==
PROVIDERS: Emergency Provider Emergency Medicine; PCP Internal Medicine
DX: R07.9 Chest pain, unspecified (principal); K21.9 Gastro-esophageal reflux disease without esophagitis; Z79.84 Long term (current) use of oral hypoglycemic drugs; Z86.718 Personal history of other venous thrombosis and embolism; R94.31 Abnormal electrocardiogram [ECG] [EKG]; I51.7 Cardiomegaly; R91.8 Other nonspecific abnormal finding of lung field; J81.1 Chronic pulmonary edema
CPT/HCPCS: 36415; 71046; 80048; 83880; 84484; 85025; 85610; 85730; 93005; 99284; A9270

== ENCOUNTER 2020-08-25 09:32 | Outpatient (CLI) | payer BC, SELFPAY ==
--- NOTE | 2020-08-25 09:43 | EST_ITS ---
Patient Info Name: Reza Albert Age: 60 years : 1960 Gender: Male Ht: 68 in Wt: 220 lbs BSA: 2.22 m2 HR: 60 bpm BP: 109 / 65 mmHg Exam Date: 08/25/2020 10:08 AM Exam Location: [facility] Pulmonary Patient Status: Outpatient Admit Date: 08/25/2020 Staff Ordering Physician: William Martin DO Piledriver Carpenter: Shila Benson RDCS Attending Provider: AYUSH RENTERIA DO Exercise Technologist: Sintia Martin RDCS Exercise Physician: Ayush Renteria DO Exam Type: CA stress echo Study Info Treadmill exercise stress echocardiogram is performed. Summary 1. 1. Negative Marcin exercise stress test for ischemic ST changes by ECG criteria. 2. 2. Reduced functional capacity, achieving 7.7 METs of workload. 3. 3. Appropriate HR response to exercise. 4. 4. Appropriate HR recovery at 1 minute post exercise. 5. 5. Negative stress echocardiogram for ischemia by wall motion analysis. 6. 6. Patient informed of the above results. Stress Echo Findings Left Ventricle Appropriate increase in LV endocardial thickening with systole. Appropriate augmentation of contractility with systole. No wall motion abnormality. Left Ventricle Normal LV systolic function, no wall motion abnormality. Protocol: Marcin Stress ECG Details Stage: REST Duration (min): 5 min : 10 sec Speed (mph): 0.0 Grade (%): 0 HR (bpm): 60 SBP (mmHg): 109 DBP (mmHg): 65 METS: --- Stage: REST Duration (min): 14 min : 49 sec Speed (mph): 0.0 Grade (%): 0 HR (bpm): 62 SBP (mmHg): 109 DBP (mmHg): 65 METS: --- Stage: STAGE 1 Duration (min): 1 min : 0 sec Speed (mph): 1.7 Grade (%): 10 HR (bpm): 110 SBP (mmHg): 109 DBP (mmHg): 65 METS: --- Stage: STAGE 1 Duration (min): 2 min : 0 sec Speed (mph): 1.7 Grade (%): 10 HR (bpm): 121 SBP (mmHg): 109 DBP (mmHg): 65 METS: --- Stage: STAGE 1 Duration (min): 3 min : 0 sec Speed (mph): 1.7 Grade (%): 10 HR (bpm): 119 SBP (mmHg): 189 DBP (mmHg): 72 METS: --- Stage: STAGE 2 Duration (min): 1 min : 0 sec Speed (mph): 2.5 Grade (%): 12 HR (bpm): 129 SBP (mmHg): 189 DBP (mmHg): 72 METS: --- Stage: STAGE 2 Duration (min): 2 min : 0 sec Speed (mph): 2.5 Grade (%): 12 HR (bpm): 130 SBP (mmHg): 149 DBP (mmHg): 71 METS: --- Stage: STAGE 2 Duration (min): 3 min : 0 sec Speed (mph): 2.5 Grade (%): 12 HR (bpm): 130 SBP (mmHg): 149 DBP (mmHg): 71 METS: --- Stage: STAGE 3 Duration (min): 0 min : 30 sec Speed (mph): 0.0 Grade (%): 0 HR (bpm): 147 SBP (mmHg): 149 DBP (mmHg): 71 METS: --- Stage: RECOVERY Duration (min): 0 min : 29 sec Speed (mph): 0.0 Grade (%): 0 HR (bpm): 128 SBP (mmHg): 149 DBP (mmHg): 71 METS: --- Stage: RECOVERY Duration (min): 1 min : 29 sec Speed (mph): 0.0 Grade (%): 0 HR (bpm): 87 SBP (mmHg): 128 DBP
== END 2020-08-25 09:33 | disposition home or self-care (01) ==
PROVIDERS: PCP Internal Medicine; Visit Provider Internal Medicine
DX: R07.89 Other chest pain (principal)
CPT/HCPCS: 93351

== ENCOUNTER 2021-08-05 12:07 | Outpatient (CLI) | payer BC, SELFPAY ==
[2021-08-05 13:11] LABS: Basophils Absolute Auto 0.1 K/mm3 (0.0-0.1); Basophils Percent Auto 0.7 % (0.2-1.2); Eosinophils Absolute Auto 0.1 K/mm3 (0-0.3); Eosinophils Percent Auto 1.7 % (0-4.4); Hematocrit 40.8 % (42.0-52.0); Hemoglobin 14.4 g/dL (14.0-18.0); Immature Granulocyte Absolute 0.02 K/mm3 (0.00-0.031); Immature Granulocyte Percent A 0.2 % (0-0.5); Lymphocytes Absolute Auto 3.08 K/mm3 (0.9-3.2); Lymphocytes Percent Auto 36.9 % (18.3-44.2); Mean Corpuscular HGB Conc 35.3 g/dl (32-36); Mean Corpuscular Hemoglobin 31.6 pg (26-34); Mean Corpuscular Volume 89.5 fl (80-100); Mean Platelet Volume 9.2 fl (7.4-10.4); Monocytes Absolute Auto 0.4 K/mm3 (0.1-0.6); Monocytes Percent Auto 5.3 % (2.6-8.5); Neutrophils Absolute Auto 4.6 K/mm3 (1.3-6.7); Neutrophils Percent Auto 55.2 % (45.5-73.1); Platelet Count Result 265 k/mm3 (150-375); Red Blood Count 4.56 M/mm3 (4.6-6.20); Red Cell Distribution Width 12.5 % (11.5-14.5); White Blood Count 8.4 K/mm3 (4.5-10.0)
[2021-08-05 13:26] LABS: Alanine Aminotransferase 28 U/L (4-50); Albumin Level 4.4 g/dL (3.5-5.1); Alkaline Phosphatase 91 U/L (38-126); Anion Gap 7 mmol/L (8-16); Aspartate Amino Transferase 30 U/L (17-59); Bilirubin,Total 0.5 mg/dL (0.2-1.3); Blood Urea Nitrogen 12 mg/dL (9-20); Calcium 9.1 mg/dL (8.4-10.2); Carbon Dioxide 24 mmol/L (22-30); Chloride 103 mmol/L (98-107); Cholesterol 238 mg/dL (0-200); Estimated Glomerular Filt Rate > 60; Glucose 97 mg/dL (65-110); HDL Direct 41 mg/dL; Potassium 3.9 mmol/L (3.4-5.0); Sodium 134 mmol/L (137-145); Triglycerides 124 mg/dL (<150)
[2021-08-05 13:37] LABS: LDL Cholesterol Direct 151 mg/dL
[2021-08-05 13:55] LABS: Prostate Specific Antigen 4.3 ng/mL (< OR = 4.0)
== END 2021-08-05 12:08 | disposition home or self-care (01) ==
LOC: ANHLAB 12:11
PROVIDERS: PCP Internal Medicine; Visit Provider Internal Medicine
DX: Z00.00 Encounter for general adult medical examination without abnormal findings (principal)
CPT/HCPCS: 36415; 80053; 80061; 84153; 84443; 85025

== ENCOUNTER 2021-09-10 10:12 | Outpatient (CLI) | payer BC, SELFPAY ==
[2021-09-10 11:13] LABS: Prostate Specific Antigen 3.1 ng/mL (< OR = 4.0)
== END 2021-09-10 10:13 | disposition home or self-care (01) ==
PROVIDERS: PCP Internal Medicine; Visit Provider Physician Assistant
DX: R97.20 Elevated prostate specific antigen [PSA] (principal)
CPT/HCPCS: 36415; 84153

== ENCOUNTER 2022-09-17 10:26 | Outpatient (CLI) | payer BC, SELFPAY ==
[2022-09-17 11:31] LABS: Basophils Absolute Auto 0.1 K/mm3 (0.0-0.1); Basophils Percent Auto 0.6 % (0.2-1.2); Eosinophils Absolute Auto 0.3 K/mm3 (0-0.3); Eosinophils Percent Auto 3.2 % (0-4.4); Hematocrit 39.2 % (42.0-52.0); Immature Granulocyte Absolute 0.02 K/mm3 (0.00-0.031); Immature Granulocyte Percent A 0.3 % (0-0.5); Lymphocytes Absolute Auto 2.39 K/mm3 (0.9-3.2); Lymphocytes Percent Auto 30.7 % (18.3-44.2); Mean Corpuscular HGB Conc 35.7 g/dl (32-36); Mean Corpuscular Hemoglobin 31.8 pg (26-34); Mean Corpuscular Volume 89.1 fl (80-100); Mean Platelet Volume 9.7 fl (7.4-10.4); Monocytes Absolute Auto 0.6 K/mm3 (0.1-0.6); Monocytes Percent Auto 7.3 % (2.6-8.5); Neutrophils Absolute Auto 4.5 K/mm3 (1.3-6.7); Neutrophils Percent Auto 57.9 % (45.5-73.1); Platelet Count Result 225 k/mm3 (150-375); Red Cell Distribution Width 12.9 % (11.5-14.5); White Blood Count 7.8 K/mm3 (4.5-10.0)
[2022-09-17 11:48] LABS: Chloride 103 mmol/L (98-107)
[2022-09-17 12:00] LABS: Anion Gap 8 mmol/L (8-16); Blood Urea Nitrogen 12 mg/dL (9-20); Carbon Dioxide 25 mmol/L (22-30); LDL Cholesterol Direct 135 mg/dL; Potassium 3.9 mmol/L (3.4-5.0); Sodium 136 mmol/L (137-145)
[2022-09-17 12:01] LABS: Alanine Aminotransferase 31 U/L (6-50); Albumin Level 4.3 g/dL (3.5-5.1); Alkaline Phosphatase 80 U/L (38-126); Aspartate Amino Transferase 32 U/L (17-59); Bilirubin,Total 0.5 mg/dL (0.2-1.3); Calcium 8.6 mg/dL (8.4-10.2); Cholesterol 212 mg/dL (0-200); Estimated Glomerular Filt Rate > 60; Glucose 100 mg/dL (65-110); HDL Direct 40 mg/dL; Triglycerides 102 mg/dL (<150)
[2022-09-17 12:17] LABS: Prostate Specific Antigen 3.6 ng/mL (< OR = 4.0); Thyroid Stimulating Hormone 0.994 uIU/mL (0.465-4.680)
== END 2022-09-17 10:27 | disposition home or self-care (01) ==
LOC: ANHLAB 10:27
PROVIDERS: PCP Internal Medicine; Visit Provider Internal Medicine
DX: Z00.00 Encounter for general adult medical examination without abnormal findings (principal)
CPT/HCPCS: 36415; 80053; 80061; 84153; 84443; 85025; G0103

== ENCOUNTER 2024-03-20 09:08 | Outpatient (CLI) | payer OTHER, SELFPAY ==
[2024-03-20 09:37] LABS: Basophils Absolute Auto 0.1 K/mm3 (0.0-0.1); Basophils Percent Auto 0.8 % (0.2-1.2); Eosinophils Absolute Auto 0.2 K/mm3 (0-0.3); Eosinophils Percent Auto 3.4 % (0-4.4); Hematocrit 40.7 % (42.0-52.0); Hemoglobin 14.1 g/dL (14.0-18.0); Immature Granulocyte Absolute 0.02 K/mm3 (0.00-0.031); Immature Granulocyte Percent A 0.3 % (0-0.5); Lymphocytes Absolute Auto 2.29 K/mm3 (0.9-3.2); Mean Corpuscular HGB Conc 34.6 g/dl (32-36); Mean Corpuscular Hemoglobin 31.7 pg (26-34); Mean Corpuscular Volume 91.5 fl (80-100); Mean Platelet Volume 9.3 fl (7.4-10.4); Monocytes Absolute Auto 0.5 K/mm3 (0.1-0.6); Monocytes Percent Auto 6.3 % (2.6-8.5); Neutrophils Absolute Auto 4.1 K/mm3 (1.3-6.7); Neutrophils Percent Auto 57.2 % (45.5-73.1); Platelet Count Result 247 k/mm3 (150-375); Red Blood Count 4.45 M/mm3 (4.6-6.20); Red Cell Distribution Width 12.7 % (11.5-14.5); White Blood Count 7.2 K/mm3 (4.5-10.0)
[2024-03-20 10:03] LABS: Alanine Aminotransferase 23 U/L (6-50); Albumin Level 4.4 g/dL (3.5-5.1); Alkaline Phosphatase 78 U/L (38-126); Anion Gap 3 mmol/L (4-12); Aspartate Amino Transferase 29 U/L (17-59); Bilirubin,Total 0.6 mg/dL (0.2-1.3); Blood Urea Nitrogen 14 mg/dL (9-20); Carbon Dioxide 27 mmol/L (22-30); Chloride 97 mmol/L (98-107); Cholesterol 216 mg/dL (0-200); Estimated Glomerular Filt Rate > 60; Glucose 101 mg/dL (65-110); HDL Direct 49 mg/dL; LDL Cholesterol Direct 135 mg/dL; Potassium 4.2 mmol/L (3.4-5.0); Sodium 127 mmol/L (137-145); Triglycerides 70 mg/dL (<150)
[2024-03-20 10:28] LABS: Prostate Specific Antigen 4.3 ng/mL (< OR = 4.0)
== END 2024-03-20 09:09 | disposition home or self-care (01) ==
LOC: ANHLAB 09:12
PROVIDERS: PCP Internal Medicine; Visit Provider Internal Medicine
DX: Z00.00 Encounter for general adult medical examination without abnormal findings (principal); Z13.29 Encounter for screening for other suspected endocrine disorder; Z12.5 Encounter for screening for malignant neoplasm of prostate
CPT/HCPCS: 36415; 80053; 80061; 84153; 84443; 85025; G0103

== ENCOUNTER 2024-06-01 10:57 | Outpatient (CLI) | payer OTHER, SELFPAY ==
[2024-06-01 12:17] LABS: Sodium Urine Random 50 meq/L
[2024-06-01 12:31] LABS: Anion Gap 5 mmol/L (4-12); Blood Urea Nitrogen 14 mg/dL (9-20); Calcium 8.8 mg/dL (8.4-10.2); Carbon Dioxide 28 mmol/L (22-30); Chloride 101 mmol/L (98-107); Estimated Glomerular Filt Rate > 60; Glucose 91 mg/dL (65-110); Potassium 3.9 mmol/L (3.4-5.0); Sodium 134 mmol/L (137-145)
[2024-06-01 12:58] LABS: Prostate Specific Antigen 3.8 ng/mL (< OR = 4.0)
[2024-06-06 16:23] LABS: Chloride Rand Ur 57 mmol/L (32-290); Chloride/Creatinine Rand Ur 108 (23-275); Creatinine Random Urine 53 mg/dL (20-320)
== END 2024-06-01 10:58 | disposition home or self-care (01) ==
PROVIDERS: PCP Internal Medicine; Visit Provider Internal Medicine
DX: E87.1 Hypo-osmolality and hyponatremia (principal); R97.20 Elevated prostate specific antigen [PSA]; E87.8 Other disorders of electrolyte and fluid balance, not elsewhere classified
CPT/HCPCS: 36415; 80048; 82436; 82570; 84153; 84300

== ENCOUNTER 2024-06-06 03:30 | Emergency (ER) | payer OTHER, SELFPAY ==
[2024-06-06] VITALS (10 sets, daily range): BP systolic 104–143; BP diastolic 61–88; PULSE 61–85; RESP 12–19; TEMP 36.6; O2SAT 97–100
--- NOTE | ~2024-06-06 | XR_ITS ---
Clinical Indication: Syncope, weakness PA and lateral views of the chest: Comparison: 08/13/2020 Findings: The lungs are clear, without evidence of focal consolidation or pleural effusion. Cardiome diastinal silhouette is within normal limits. Bones and soft tissues are unremarkable. Impression: Normal chest. Reviewed, dictated and finalized at [facility]. [employer] SPECIALIST Impression: Normal chest.
--- NOTE | 2024-06-06 03:35 | ECG_ITS ---
Test Date: 2024-06-06 03:42:34 Measurements Intervals [place] Rate: 61 P: 39 MI: 141 QRS: 19 QRSD: 98 T: 56 QT: 403 QTc: 409 Interpretive Statements SINUS RHYTHM NONSPECIFIC T-WAVE ABNORMALITY No previous ECG available for comparison Electronically Signed On 06-06-2024 18:49:31 TOWEL SE[employer] by Marylin Gonzalez
--- NOTE | 2024-06-06 04:35 | ED_ITS ---
HPI - Syncope General Chief Complaint: Syncope Stated Complaint: Syncope getting up to restroom Time Seen by Provider: 06/06/24 04:20 Source: patient, family, EMS and RN notes reviewed Mode of arrival: EMS Limitations: no limitations History of Present Illness HPI narrative: Patient presents after having an episode of syncope. He woke up bloated and gassy and tried moving side to side in bed. Had acid reflux and abdominal pain. This was at about midnight and he got up and had nausea and several episodes of diarrhea. Took Tums and GasEx. While walking across the room about 15 feet, he lost muscle tone and consciousness. It was initially stated that patient hit his head on the wall but patient denies this, states he doesn't think that happened. No chest pain or shortness of breath. He has a history of problems with his sodium and so he tries to drink plenty of electrolyte containing fluids. He was on a hunting trip earlier today and walked a lot. When EMS arrived he was noted to be diaphoretic and hypotensive. He states he felt weak. No pain now. On priolsec for acid reflux at baseline. EMS gave Zofran and fluids en route and this made him feel better although he still feels dry. PCP Dr Reveles. Related Data Home Medications ?Medication ?Instructions ?Recorded ?Confirmed ?Last Taken ?Type aspirin 81 mg tablet,delayed 81 mg PO DAILY 01/08/20 03/28/24 Unknown History release (Adult Low Dose Aspirin) Allergies Allergy/AdvReac Type Severity Reaction Status Date / Time erythromycin base Allergy Mild Unknown Verified 06/06/24 03:34 methylprednisolone Allergy Mild Unknown Verified 06/06/24 03:34 [facility] Past Medical History Medical History Anxiety DVT (deep venous thrombosis) GERD (gastroesophageal reflux disease) Family History Family History Father Patient's father is Social History Social History (Updated 09/22/22 @ 15:10 by Dulce Ruiz MA) Smoking status: Never smoker Alcohol intake: never Substance use: never Lack of Transportation: No Lack of Food: Never True Current Housing: I Have Housing Concerned About Future Housing: No Difficulty Paying Gas/Electric Bills: No Difficulty Paying for Meds: No Currently Unemployed: No Education: Master's Degree or Higher Difficulty w/ Childcare or Family Care: No Gender identity (if verbalized by the patient): Male Spiritual care concerns: No Exam 2 Narrative: GENERAL: Well-appearing, well-nourished, and in no acute distress. HEAD: Normocephalic, atraumatic. No evidence of hematomas. EYES: Non injected, non icteric ENT: Nares clear, no rhinorrhea or epistaxis. Tacky mucous membranes. NECK: Supple. CHEST: Speaking in full sentences. No respiratory distress. HEART: Regular rate and rhythm. . ABDOMEN: Protuberant but Soft, nondistended. EXTREMITIES: Normal range of motion. No lower extremity edema. SKIN: Warm, dry, no rash. NEURO: No focal deficits. Alert and oriented x3. PSYCH: Normal mood and affect. Course Vital Signs Vital signs: Vital Signs Temperature 97.9 F 06/06/24 03:24 Pulse Rate 61 06/06/24 03:24 Respiratory Rate 16 06/06/24 03:24 Blood Pressure 104/64 06/06/24 03:24 Pulse Oximetry 98 06/06/24 03:24 Oxygen Delivery Room Air 06/06/24 03:24 Temperature 97.9 F 06/06/24 03:24 Pulse Rate 77 06/06/24 07:35 Respiratory Rate 16 06/06/24 07:35 Blood Pressure 120/75 06/06/24 07:35 Pulse Oximetry 97 06/06/24 07:35 Oxygen Delivery Room Air 06/06/24 03:24 MDM - Syncope MDM Narrative Medical decision making narrative: Patient presents after a syncopal episodes. He woke up and felt nauseated and had several episodes of diarrhea then took some Tums and GasEx. He walked another 15 feet and then lost muscle tone and consciousness. In the emergency department they are afebrile with vital signs within normal limits. Patient's symptoms sound to be a combination of likely orthostatic hypotension with vasovagal and possibly a component of dehydration contributing. Cardiac etiologies seem less likely. Patient already feeling better after some Zofran and IV fluids from EMS but will give additional fluids. He does have a leukocytosis, possibly due to hemoconcentration with a degree of stress response. He has hyperglycemia without anion gap acidosis. Patient had been concerned about his sodium but it is near normal today and in fact corrects to 136mEq/L in the setting of hyperglycemia. [place] Syncope Rule: Congestive heart failure history: 0 Hematocrit <30%: 0 EKG abnormal (changed or any non-sinus rhythm):0 SOB symptoms: 0 SBP <90mmHg at triage: 0 Low risk Stable for discharge. Provided Rx for ODT Zofran. Differential Diagnosis Differential diagnosis: Likely syncope due to orthostatic hypotension, vasovagal syncope, complete atrioventricular block, dehydration and other (ACS) Lab Data Attestation: I reviewed the patient's lab results. 06/06/24 04:50 06/06/24 04:50 Labs: Lab Results 06/06/24 Range/Units 04:50 WBC 16.0 H (4.5-10.0) K/mm3 RBC 4.46 L (4.6-6.20) M/mm3 Hgb 14.4 (14.0-18.0) g/dL Hct 40.6 L (42.0-52.0) % MCV 91.0 (80-100) fl MCH 32.3 (26-34) pg MCHC 35.5 (32-36) g/dl RDW 13.1 (11.5-14.5) % Plt Count 227 (150-375) k/mm3 MPV 9.4 (7.4-10.4) fl Immature Gran % (Auto) 0.4 (0-0.5) % Neut % (Auto) 86.6 H (45.5-73.1) % Lymph % (Auto) 6.2 L (18.3-44.2) % [place] % (Auto) 5.6 (2.6-8.5) % Eos % (Auto) 0.9 (0-4.4) % Baso % (Auto) 0.3 (0.2-1.2) % Lymph # (Auto) 0.99 (0.9-3.2) K/mm3 [place] # (Auto) 0.9 H (0.1-0.6) K/mm3 Eos # (Auto) 0.2 (0-0.3) K/mm3 Baso # (Auto) 0.1 (0.0-0.1) K/mm3 Abs Immat Gran (auto) 0.06 H (0.00-0.031) K/mm3 Absolute Neuts (auto) 13.8 H (1.3-6.7) K/mm3 Absolute Nucleated RBC 0.000 (0.0-0.012) K/mm3 Nucleated RBC % 0.0 (0.0-0.2) % Sodium 135 L (137-145) mmol/L Potassium 4.1 (3.4-5.0) mmol/L Chloride 105 (98-107) mmol/L Carbon Dioxide 25 (22-30) mmol/L Anion Gap 5 (4-12) mmol/L BUN 13 (9-20) mg/dL Creatinine 0.90 (0.7-1.3) mg/dL Estim Creat Clear Calc 86 ml/min Estimated GFR > 60 (59 - ) Glucose 140 H (65-110) mg/dL Calcium 8.8 (8.4-10.2) mg/dL Magnesium 2.0 (1.6-2.3) mg/dL Total Bilirubin 0.5 (0.2-1.3) mg/dL AST 28 (17-59) U/L ALT 21 (6-50) U/L Alkaline Phosphatase 82 (38-126) U/L Troponin I < 0.012 (0.000-0.034) ng/mL NT-Pro-B Natriuret Pep 20 (19.9-100) pg/mL Total Protein 7.0 (6.3-8.2) g/dL Albumin 4.1 (3.5-5.1) g/dL C. difficile (PCR) Cancelled Influenza A (RT-PCR) Cancelled Influenza B (RT-PCR) Cancelled SARS-CoV-2 RNA (RT-PCR) Negative (Negative) Imaging Data Attestation: I personally reviewed and interpreted this imaging study as follows: My impression: Borderline cardiomegaly but no pleural effusion/loss of costophrenic angle on my independent interpretation of CXR Radiologist's impression: Normal chest ECG Data EKG #1: Attestation: I personally reviewed and interpreted this ECG as follows: ECG completion date: 06/06/24 ECG completion time: 05:29 Interpretation: Normal sinus rhythm at a rate of 61 beats per minute. LA interval 141. QRS 98. QT/QTC 403/407. Good R-wave progression across the precordial leads. No T-wave inversions. Normal axis. Normal ECG. Discharge Plan Discharge Clinical Impression: Syncope, Leukocytosis, Hyperglycemia, Nausea, Diarrhea Patient Disposition: Home, Self-Care Condition: Stable Instructions: Antibiotic Form, Syncope (ED), Acute Nausea and Vomiting (DC), Acute Diarrhea (ED), Leukocytosis (ED) Additional Instructions: As we discussed, the exact etiology of your syncope is unclear although it does sound be a combination of orthostatic ( likely due to some mild dehydration) as well as vasovagal. Rest and maintain your hydration today. continue to take your reflux medicine as prescribed and if your nausea / vomiting occurs again, you have been prescribed oral disintegrating tablets of ondansetron / Zofran which dissolve under your tongue. follow-up with primary care physician. Return to the emergency department with any new or worsening symptoms. Patient Language: Kinyarwanda Prescriptions: New ondansetron 4 mg tablet,disintegrating 4 mg PO Q8H PRN (Reason: nausea and vomiting) Qty: 7 0RF No Action aspirin [Adult Low Dose Aspirin] 81 mg tablet,delayed release (DR/EC) 81 mg PO DAILY omeprazole 20 mg capsule,delayed release(DR/EC) 20 mg PO DAILY 30 Days Qty: 30 0RF lorazepam 1 mg tablet 1 mg PO DAILY PRN (Reason: anxiety) 15 Days Qty: 30 0RF Follow-up/Referrals: Kelechi Reveles DO [Primary Care Provider] - Stand Alone Forms: Work/School Release IP Time of Disposition: 07:17
[2024-06-06] MEDS: FAMOTIDINE 20 MG/2 ML VIAL IV PUSH (04:47)
[2024-06-06 05:04] LABS: Basophils Absolute Auto 0.1 K/mm3 (0.0-0.1); Basophils Percent Auto 0.3 % (0.2-1.2); Eosinophils Absolute Auto 0.2 K/mm3 (0-0.3); Eosinophils Percent Auto 0.9 % (0-4.4); Hematocrit 40.6 % (42.0-52.0); Hemoglobin 14.4 g/dL (14.0-18.0); Immature Granulocyte Absolute 0.06 K/mm3 (0.00-0.031); Immature Granulocyte Percent A 0.4 % (0-0.5); Lymphocytes Absolute Auto 0.99 K/mm3 (0.9-3.2); Lymphocytes Percent Auto 6.2 % (18.3-44.2); Mean Corpuscular HGB Conc 35.5 g/dl (32-36); Mean Corpuscular Hemoglobin 32.3 pg (26-34); Mean Platelet Volume 9.4 fl (7.4-10.4); Monocytes Absolute Auto 0.9 K/mm3 (0.1-0.6); Monocytes Percent Auto 5.6 % (2.6-8.5); Neutrophils Absolute Auto 13.8 K/mm3 (1.3-6.7); Neutrophils Percent Auto 86.6 % (45.5-73.1); Platelet Count Result 227 k/mm3 (150-375); Red Blood Count 4.46 M/mm3 (4.6-6.20); Red Cell Distribution Width 13.1 % (11.5-14.5)
[2024-06-06 05:10] LABS: Alanine Aminotransferase 21 U/L (6-50); Albumin Level 4.1 g/dL (3.5-5.1); Alkaline Phosphatase 82 U/L (38-126); Anion Gap 5 mmol/L (4-12); Aspartate Amino Transferase 28 U/L (17-59); Bilirubin,Total 0.5 mg/dL (0.2-1.3); Blood Urea Nitrogen 13 mg/dL (9-20); Calcium 8.8 mg/dL (8.4-10.2); Carbon Dioxide 25 mmol/L (22-30); Chloride 105 mmol/L (98-107); Estimated CRCL calculation 86 ml/min; Estimated Glomerular Filt Rate > 60; Glucose 140 mg/dL (65-110); Potassium 4.1 mmol/L (3.4-5.0); Sodium 135 mmol/L (137-145)
[2024-06-06 05:32] LABS: Troponin I < 0.012 ng/mL (0.000-0.034)
[2024-06-06] MEDS: SODIUM CHLORIDE 0.9% IV 1,000 ML 999 ML IV CONT (05:32)
[2024-06-06 05:59] LABS: SARS-CoV-2 RNA PCR Negative (Negative)
[2024-06-06 06:47] LABS: NT Pro B Type Natriuretic Pept 20 pg/mL (19.9-100)
== END 2024-06-06 07:35 | disposition home or self-care (01) ==
PROVIDERS: Emergency Provider Student in an Organized Health Care Education/Training Program; PCP Internal Medicine
DX: R55 Syncope and collapse (principal); R73.9 Hyperglycemia, unspecified; D72.829 Elevated white blood cell count, unspecified; R11.0 Nausea; R19.7 Diarrhea, unspecified; K21.9 Gastro-esophageal reflux disease without esophagitis; Z86.718 Personal history of other venous thrombosis and embolism; Z79.82 Long term (current) use of aspirin; R94.31 Abnormal electrocardiogram [ECG] [EKG]
CPT/HCPCS: 36415; 71046; 80053; 83735; 83880; 84484; 85025; 87635; 93005; 96361; 96374; 99284; J7030